=== PATIENT | male | born 1975 | race Caucasian/White ===

== ENCOUNTER 2020-07-28 06:29 | Day surgery (SDC) | payer OTHER ==
[~2020-07-28] VITALS: Ht 188 cm; Wt 159.0 kg
[~2020-07-28 06:29] MED LIST: ASPIRIN EC81 MG PO; ASPIRIN325 MG PO; ATORVASTATIN CA20 MG PO; CLONIDINE 0.3M0.3 MG PO; CYCLOBENZAPRINE10 MG PO; DICLOFENAC SODI75 MG PO; FLUOXETINE HCL20 MG PO; HCTZ25 MG PO; K-DUR20 MEQ PO; LASIX80 MG PO; LOPRESSOR50 MG PO; PERCOCET 5-3251 EACH PO; PHENTERMINE H37.5 M1 PO; PRINIVIL20 MG PO; PROTONIX 40MG T40 MG PO; TRAMADOL HCL50 MG PO; VITAMIN D21250 MCG PO
[2020-07-28] MEDS ORDERED: PERCOCET 5-3251 EACH PO (10:35)
[2020-07-29 05:49] LABS: BASOPHIL 0.1 % (0-2); EOSINOPHIL 0 % (0-5); HCT 32.8 % (42.0-52.0); HGB 11.1 g/dl (13.2-18.0); LYMPHOCYTE 9.6 % (15-48); MCH 32.2 pg (25.0-31.0); MCHC 33.8 g/dL (32.0-36.0); MCV 95.1 fL (78.0-100.0); MONOCYTE 6.8 % (0-12); MPV 9.9 fL (6.0-9.5); NEUTROPHIL 82.6 % (41-80); NRBC 0; PLT 274 K/uL (150-400); RBC 3.45 M/uL (4.70-6.00); RDW 13.1 % (11.5-14.0); WBC 17.4 K/uL (4.0-10.5)
[2020-07-29 06:19] LABS: BUN/CREAT RATIO (CALC) 23.7 RATIO; CREATININE 0.93 mg/dL (0.67-1.17); POTASSIUM 4.5 mmol/L (3.5-5.1)
[2020-07-29] MEDS ORDERED: FEOSOL325 MG PO (09:11)
== END 2020-07-29 11:21 | disposition home or self-care (01) ==
LOC: FMS 06:29 → FAS 06:29 → FMS 09:27 → FAS 07-29 11:21
PROVIDERS: Orthopaedic Surgery
DX: M17.11 Unilateral primary osteoarthritis, right knee (principal); M21.161 Varus deformity, not elsewhere classified, right knee; M25.461 Effusion, right knee; I10 Essential (primary) hypertension; E78.5 Hyperlipidemia, unspecified; G47.33 Obstructive sleep apnea (adult) (pediatric); Z99.89 Dependence on other enabling machines and devices; Z20.822 Contact with and (suspected) exposure to COVID-19; Z88.0 Allergy status to penicillin; Z79.899 Other long term (current) drug therapy
CPT/HCPCS: 36415; 73560; 80048; 85025; 86850; 86900; 86901; 94010; 94762; 97110; 97162; 97166; 97530-GP; 97535; C1713; C1776; J0171; J0735; J1100; J1170; J1885; J2250; J2270; J2405; J2704; J2795; J3010; J3370; J7050; J7120